=== PATIENT | female | born 1940 | race Caucasian/White ===

== ENCOUNTER 2018-02-18 06:30 | Inpatient (IN) | payer OTHER ==
[2018-02-07 11:33] LABS: ABSOLUTE BASOPHILS 0.1 thou/uL (0.0-0.2); ABSOLUTE EOSINOPHILS 0.2 thou/uL (0.0-0.7); ABSOLUTE MONOCYTES 0.5 thou/uL (0.0-1.2); ABSOLUTE NEUTROPHILS 3.6 thou/uL (1.6-8.1); BASOPHILS 1.6 %; EOSINOPHILS 3.8 %; HEMATOCRIT 39.6 % (37.0-47.0); HEMOGLOBIN 12.8 gm/dL (12.0-15.0); LYMPHOCYTES 31.1 %; MCHC 32.4 g/dL (28.0-37.0); MCV 92.7 fL (80.0-100.0); MONOCYTES 7.8 %; MPV 7.2 fl. (7.2-11.1); NUCLEATED RBCS 0 /100WBC; PLATELET COUNT* 361 thou/uL (150-400); POLYS 55.7 %; RBC 4.28 mil/uL (4.20-5.00); RDW-CV 12.5 % (10.5-14.5); WBC 6.5 thou/uL (4.0-11.0)
[2018-02-07 11:42] LABS: APTT 26.8 Seconds (25.0-31.3); PROTIME 10.3 Seconds (9.20-11.50)
[2018-02-07 11:48] LABS: ALBUMIN 3.5 g/dL (3.4-5.0); CREATININE 0.8 mg/dL (0.6-1.3); POTASSIUM 3.9 mmol/L (3.5-5.1); TOTAL BILIRUBIN 0.4 mg/dL (<0.1-1.0); TOTAL PROTEIN 7.9 g/dL (6.4-8.2)
[2018-02-07 12:32] LABS: ESR (SEDRATE) 65 mm/hr (0-30)
--- NOTE | 2018-02-07 16:37 | EKG ---
[place] [address] ELECTROCARDIOGRAM REPORT Name: JULIETAMARIE Room: PRE IN [facility].#: [id number] Admission: Attend Phys: Lorene Cunningham Discharge: Date of : 38 Report #: [id number] THIS REPORT FOR: //name// [facility] Test Date: 2018-02-07 Test Time: 09:24:02 Pat Name: MARIE RENDON Department: Room: Gender: F [employer]one Pilot: : 1940 Requested By: Derick Lucas Order Number: [id number] Reading MD: Luis Armando Kim Measurements Intervals [place] Rate: 81 P: 91 TX: 140 QRS: 71 QRSD: 122 T: 124 QT: 402 QTc: 467 Interpretive Statements Sinus rhythm Left atrial enlargement IVCD, consider atypical LBBB No previous ECG available for comparison Electronically Signed On 02-07-2018 16:37:08 CDT by Luis Armando Kim [email or web address] <ELECTRONICALLY SIGNED> By: Luis Armando Kim MD, [facility] 02/07/18 1637 0924 0924 Luis Armando Kim MD, FACC /EPI
[~2018-02-18] VITALS: Ht 165.1 cm; Wt 53.5 kg
[~2018-02-18 06:30] MED LIST: ANORO ELLIPTA1 EACH INH; CHILDREN'S ASPI81 M1 PO; CURAMED PO; KRILL OIL 3501 EACH PO; LOSARTAN-HCTZ1 EAC1 PO; MAGNESIUM CITR100 MG PO; MOBIC15 MG PO; PRAVACHOL40 MG PO; TAZTIA XT360 M1 PO; ULTRAM 50MG TAB50 MG PO; VENTOLIN HFA 1818 GM INH; VIIBRYD20 MG PO; VITAMIN D2000 UNIT PO
[2018-02-18 07:52] VITALS: BP 154/82
[2018-02-18 12:30] VITALS: BP 121/50
[2018-02-18 16:00] VITALS: BP 152/80
[2018-02-18 20:00] VITALS: BP 155/74
[2018-02-19] VITALS: BP 149/71
[2018-02-19 04:00] VITALS: BP 144/61
[2018-02-19 04:35] LABS: HEMATOCRIT 26.8 % (37.0-47.0); HEMOGLOBIN 8.9 gm/dL (12.0-15.0)
[2018-02-19 08:40] VITALS: BP 142/68
[2018-02-19 12:56] VITALS: BP 143/67
[2018-02-19 16:14] VITALS: BP 143/77
--- NOTE | 2018-02-19 16:18 | OP ---
[address] [address] OPERATIVE REPORT Name: MARIE RENDON Room: [address] IN M.R.#: [id number] Admission: 02/18/18 Attend Phys: Lorene Cunningham Discharge: Date of : 38 Report #: [id number] THIS REPORT FOR: //name// CC: Portillo Jennings DATE OF SERVICE: 02/18/2018 PREOPERATIVE DIAGNOSIS: Advanced degenerative joint disease, right hip with intractable pain. POSTOPERATIVE DIAGNOSIS: Advanced degenerative joint disease, right hip with intractable pain. PROCEDURE: Right total hip arthroplasty with anterior surgical incision. SURGEON: Derick Lucas DO. DIRECTOR [place]: Delio Sidhu DO and Jina Lucas DO. ANESTHESIA: General endotracheal. COMPLICATIONS: None. ANTIBIOTICS: One gram Ancef IVPB 30 minutes prior to incision. IMPLANTS: A Biomet G7 finned acetabular shell 4-hole 54 mm; a G7 acetabular liner high wall 40 mm; 2 acetabular screws, 6.5 x 30 and 6.5 x 25; a 40-mm ceramic head; a 12 x 109 mm high-offset micro Taperloc femoral stem and a -3 mm taper adapter. ESTIMATED BLOOD LOSS: 550 mL, none returned. SPECIMENS: None. INDICATIONS FOR SURGERY: The patient is a 77-year-old female with long-standing severe right hip pain. 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 She has failed conservative treatment to date. She is at the appropriate weight, but has tried weight loss, exercise therapy with formal therapy and a regular routine exercise program. She has had anti-inflammatories, which she does not tolerate due to allergies overtime and mouth sores over time. She is here today for elective surgical intervention. Risks and complications discussed in detail. These include but are not limited to neurovascular damage, infection, fracture, need for further surgery, failure of the prosthesis, [place] [address] OPERATIVE REPORT Name: SIVAKUMARLEANDROMARIE Room: [address] ADM IN .R.#: [id number] Admission: 02/18/18 Attend Phys: Lorene Cunningham Discharge: Date of : 38 Report #: [id number] prosthesis, allergy developed at the prosthesis, deep vein thrombosis, pulmonary emboli, myocardial infarction, rhabdomyolysis, leg length discrepancy and unforeseen events and even . Signed informed consent has been attached to the chart, may refer to, and her hip was marked preoperatively for timeout technique. DESCRIPTION OF PROCEDURE: The patient was taken to the operating room suite, given a general anesthetic and placed on the [place] table. All pressure points were well padded. The right hip was prepped and draped in the usual sterile fashion. A timeout technique was utilized to verify appropriate surgical site, procedure or concerns. The patient was given an incision along the anterior aspect of the hip, approximately 6 cm in length, through the skin and subcutaneous tissue down to the tensor fascia itself. The tensor fascia was then incised in line with the hip incision, approximately one cm posterior to the interval between the sartorius and the tensor fascia wes musculature. This interval was then developed with finger dissection down to the capsule. Appropriate retractors were placed. The anterior capsule was visualized. The circumflex arteries have been treated with Aquamantys and resected. The capsule was treated with the Aquamantys. The entire incisional site and periosteal region was injected with anesthetic solution. Electrocautery was used to remove the anterior aspect of the capsule. The femoral neck was visualized and sawed with the subcutaneous saw at a level just at the base of the femoral neck, a fingerbreadth above the lesser trochanter. Femoral head was removed. The acetabulum was prepared by removing the remaining labral structures. Then, reaming sequentially to a size 53-mm reamer, this final reaming was done under C-arm guidance for appropriate depth, size and alignment. A final 54-mm cup was impacted firmly into place. This was checked in all planes with external guide, direct visualization and C-arm fluoroscopy. Two drill holes were performed and the appropriate screws were placed. The center manhole cover was then placed onto the cup. The acetabular liner was aligned with the high wall in the superior anterior direction and impacted firmly into place. Attention was then turned to the femur. The leg was placed in the appropriate location to allow access to the proximal femur. The box osteotome was then utilized to allow access to the intramedullary canal, followed by the rat tail broach. The femur was then sequentially broached up to a size 12 mm trial component. A trial reduction was performed. The hip was placed through full range of motion and checked for stability. It was checked with x-ray to make certain the leg lengths were appropriate. Everything was in the appropriate alignment and the stability was excellent. Final components were obtained, placed on the back table. Trial components were removed. Copious irrigation carried out throughout the incision. Incision was then sprinkled with vancomycin powder. The final Taperloc stem was impacted firmly into place. The -3 taper adapter and the 40-mm ceramic head were then impacted firmly onto a clean, dry [place] taper neck. Final reduction was performed. Final x-rays were obtained. Stability was good in all planes, with no tendency towards [facility] [address] [place] [address] OPERATIVE REPORT Name: MARIE RENDON Room: [address] [place] .R.#: [id number] Admission: 02/18/18 Attend Phys: Lorene Cunningham Discharge: Date of : 38 Report #: [id number] dislocation. Leg length was almost equal, if not equal. Once again, copious irrigation was carried out throughout the incision. The incision was closed by using a running #1 Quill suture to the tensor fascia, followed by skin reapproximation with 2-0 Monocryl subcutaneous sutures, followed by a 3-0 Stratafix subcuticular suture reinforced with Dermabond glue. A Mepilex dressing was applied, followed by thigh high MILTON hose. Estimated blood loss was roughly 550 mL. The patient was very stable, therefore none was returned. Final sponge count was correct x 2. <ELECTRONICALLY SIGNED> By: Derick Lucas DO 02/19/18 1618 0925 [id number] Lucas DO /nt
[2018-02-19 20:30] VITALS: BP 138/54
[2018-02-20 00:20] VITALS: BP 119/46
[2018-02-20 04:00] LABS: HEMATOCRIT 28.9 % (37.0-47.0); HEMOGLOBIN 9.4 gm/dL (12.0-15.0); MCH 29.7 pg (26.0-34.0); MCHC 32.4 g/dL (28.0-37.0); MCV 91.9 fL (80.0-100.0); MPV 8.1 fl. (7.2-11.1); RBC 3.15 mil/uL (4.20-5.00); RDW-CV 12.7 % (10.5-14.5); WBC 12.5 thou/uL (4.0-11.0)
[2018-02-20 04:16] LABS: CALCIUM 8.3 mg/dL (8.5-10.1); CREATININE 0.8 mg/dL (0.6-1.3); MAGNESIUM 1.7 mg/dL (1.8-2.4); POTASSIUM 4.3 mmol/L (3.5-5.1)
[2018-02-20 04:27] VITALS: BP 119/50
[2018-02-20 07:50] VITALS: BP 109/46
[2018-02-20 10:20] LABS: POTASSIUM 4.2 mmol/L (3.5-5.1)
[2018-02-20 17:21] VITALS: BP 108/46
[2018-02-20 17:21] LABS: URINE BILIRUBIN NEGATIVE (Negative); URINE BLOOD NEGATIVE (Negative); URINE CLARITY CLEAR; URINE COLOR YELLOW; URINE GLUCOSE-RANDOM NEGATIVE (Negative); URINE KETONES NEGATIVE (Negative); URINE LEUKOCYTES-REFLEX NEGATIVE (Negative); URINE NITRITE-REFLEX NEGATIVE (Negative); URINE PROTEIN NEGATIVE (Negative); URINE UROBILINOGEN 0.2 E.U./dl (0.2-1.0)
[2018-02-20 20:45] VITALS: BP 122/55
[2018-02-20] MEDS ORDERED: ELIQUIS5 MG PO (22:11)
[2018-02-20] MEDS ORDERED: OXYCODONE HCL15 MG PO (22:11)
[2018-02-20] MEDS ORDERED: LIDOPATCH1 EACH TOP (22:11)
[2018-02-20] MEDS ORDERED: TRAMADOL 50 MG50 MG PO (22:11)
[2018-02-21] VITALS: BP 113/55; BP 121/55
[2018-02-21 04:00] VITALS: BP 115/49
[2018-02-21 04:23] LABS: HEMATOCRIT 24.5 % (37.0-47.0); HEMOGLOBIN 8.2 gm/dL (12.0-15.0); MCH 30.1 pg (26.0-34.0); MCHC 33.6 g/dL (28.0-37.0); MCV 89.5 fL (80.0-100.0); MPV 8.1 fl. (7.2-11.1); RBC 2.73 mil/uL (4.20-5.00); RDW-CV 12.4 % (10.5-14.5); WBC 8.9 thou/uL (4.0-11.0)
[2018-02-21 04:43] LABS: CALCIUM 8.1 mg/dL (8.5-10.1); CREATININE 0.9 mg/dL (0.6-1.3); MAGNESIUM 1.7 mg/dL (1.8-2.4); POTASSIUM 4.2 mmol/L (3.5-5.1)
[2018-02-21 08:00] VITALS: BP 130/55
[2018-02-21 11:05] LABS: POTASSIUM 3.9 mmol/L (3.5-5.1)
[2018-02-21 14:03] VITALS: BP 130/55
== END 2018-02-21 14:33 | DRG 470 ==
LOC: M.PRE 06:30 → M.ORTHSURG 07:02 → M.TBA 07:02 → M.SUR 07:13 → EDSTATUS 07:37 → M.PRE 07:39 → M.ORTHSURG 11:16 → M.PRE 13:49 → M.ORTHSURG 02-21 14:33
PROVIDERS: Internal Medicine; Orthopaedic Surgery; ADMIT Internal Medicine
PROC: 0SR904Z Replacement of Right Hip Joint with Ceramic on Polyethylene Synthetic Substitute, Open Approach (ICD-10-PCS; principal; 2018-02-18)
DX: M16.11 Unilateral primary osteoarthritis, right hip (principal); E87.1 Hypo-osmolality and hyponatremia; J44.9 Chronic obstructive pulmonary disease, unspecified; I10 Essential (primary) hypertension; M48.00 Spinal stenosis, site unspecified; M19.90 Unspecified osteoarthritis, unspecified site; Z88.0 Allergy status to penicillin; Z79.82 Long term (current) use of aspirin; Z79.899 Other long term (current) drug therapy; Z98.82 Breast implant status; Z87.891 Personal history of nicotine dependence